=== PATIENT | male | born 1990 | race Two or more races ===

== ENCOUNTER 2016-05-29 18:34 | Emergency (ER) | payer OTHER ==
[~2016-05-29] VITALS: Ht 167.6 cm; Wt 71.2 kg
[2016-05-29] MEDS ORDERED: Ketorolac 30mg Inj IM ONE (20:00)
[2016-05-29] MEDS ORDERED: Methocarbamol 750mg tab ORAL ONE (20:00)
[2016-05-29] MEDS ORDERED: IBUPROFEN600 MG ORAL (20:12)
[2016-05-29] MEDS ORDERED: ROBAXIN-750750 MG PO (20:12)
[2016-05-29 21:12] VITALS: BP 115/55
--- NOTE | 2016-05-29 21:34 | Emergency Room Report ---
History of Present Illness General Chief Complaint: Abdominal Pain Source: Patient Present Illness HPI The patient is a 25-year-old male presenting for left-sided abdominal pain which began today after lifting a heavy object. The patient states that he was lifting a bumper at work he felt a sharp pain to the left abdomen. Pain is described as a 10 out of 10 sharp sensation and radiates to the left leg. He has not tried any medications yet. Pain is better with rest. He denies any prior injury to this area. He denies any other symptoms including nausea, vomiting, fever, chills, diarrhea, constipation, cough, shortness of breath Allergies: Coded Allergies: ACETAMINOPHEN (Verified Adverse Reaction, Severe, 05/29/16) anxiety HYDROCODONE (Verified Adverse Reaction, Severe, 05/29/16) anxiety MORPHINE (Verified Adverse Reaction, Severe, 05/29/16) anxious Patient History Past Medical History: see triage record Pertinent Family History: none Reviewed Nursing Documentation: PMH: Agreed, PSxH: Agreed Nursing Documentation-PMH Past Medical History: No Stated History Review of Systems All Other Systems: negative except mentioned in HPI Physical Exam Vital Signs Date Time Temp Pulse Resp B/P Pulse Ox O2 Delivery O2 Flow Rate FiO2 05/29/16 18:45 98.1 67 18 115/55 98 Room Air Sp02 EP Interpretation: reviewed, normal General Appearance: no apparent distress, alert, GCS 15, non-toxic Head: normocephalic, atraumatic Eyes: bilateral eye PERRL, bilateral eye normal inspection Gastrointestinal: normal bowel sounds, soft, no mass, non-distended, no guarding, no rebound, tenderness - LLQ Genitourinary: normal inspection, no CVA tenderness Musculoskeletal: back normal, gait/station normal, normal range of motion Neurologic: alert, oriented x3, responsive, motor strength/tone normal, sensory intact, normal gait, speech normal Psychiatric: judgement/insight normal, memory normal, mood/affect normal, no suicidal/homicidal ideation Skin: normal color, no rash, warm/dry, well hydrated Lymphatic: no adenopathy Medical Decision Making PA Attestation Dr. Trinh is my supervising physician. Patient management was discussed with my supervising physician Diagnostic Impression: Primary Impression: Abdominal muscle strain Qualified Codes: S39.011A - Strain of muscle, fascia and tendon of abdomen, initial encounter ER Course The patient is a 25-year-old male presenting for left-sided abdominal pain which began today after lifting a heavy object. Ddx considered include but not limited to sprain/strain, fracture, contusion, hernia PE: Vitals are within normal limits. No apparent distress. Abdomen :There is tenderness to palpation over the left lower quadrant. No ecchymosis. Nondistended. No mass of the abdomen or inguinal region. The patient is given Toradol and Robaxin for pain and is feeling better. He will be discharged home with a prescription for Motrin and Robaxin and is to followup with PMD and workers compensation. ER precautions are given Last Vital Signs Date Time Temp Pulse Resp B/P Pulse Ox O2 Delivery O2 Flow Rate FiO2 05/29/16 21:12 98.1 90 18 115/55 98 Room Air Status: improved Disposition: HOME, SELF-CARE Condition: Improved Scripts Methocarbamol* (ROBAXIN-750*) 750 Mg Tablet 750 MG PO TID, #21 TAB 0 Refills Prov: DESEAN CATHERINE.A. 05/29/16 Ibuprofen* (MOTRIN*) 600 Mg Tablet 600 MG ORAL Q8H Y for For Pain, #30 TAB 0 Refills Prov: DESEAN CATHERINE P.A. 05/29/16 Departure Forms: Return to Work Return to Work Date: May 31, 2016 Work Restrictions: No Heavy Lifting Patient Instructions: Muscle Strain Additional Instructions: I discussed my findings with the patient. All questions and concerns have been answered. Treatment and medication compliance have been addressed. I advised the patient that they need to follow up with PMD in 3-5 days. Return to ED if pain remains or worsens, numbness or tingling occurs, new rash is noticed, fever is noticed, or if needed for any reason. Patient verbalized understanding of discharge instructions. DESEAN CATHERINE May 29, 2016 21:34
== END 2016-05-29 21:13 | disposition home or self-care (01) ==
LOC: EMR 19:40
DX: S39.011A Strain of muscle, fascia and tendon of abdomen, initial encounter (principal); X50.0XXA Overexertion from strenuous movement or load, initial encounter; Y92.69 Other specified industrial and construction area as the place of occurrence of the external cause; Y99.0 Civilian activity done for income or pay; Z88.6 Allergy status to analgesic agent
CPT/HCPCS: 96372; 99284; J1885